=== PATIENT | male | born 1940 | race Caucasian/White ===

== ENCOUNTER → 2021-01-21 | Outpatient (CLI) | payer OTHER ==
[~2021-01-21] MED LIST: ELIQUIS5 MG PO; LEXAPRO 10 MG T10 M1 PO; NOHOMEMEDICATIONS; OXYCODONE HCL 55 MG PO; WELLBUTRIN SR150 MG PO
== END ==
LOC: M.LAB 09:00
PROVIDERS: ATTEND Surgery
DX: Z20.822 Contact with and (suspected) exposure to COVID-19 (principal)

== ENCOUNTER → 2021-01-22 | Day surgery (SDC) | payer OTHER ==
[2021-01-22 09:05] LABS: HEMATOCRIT 35.8 % (42.0-52.0); HEMOGLOBIN 12.1 gm/dL (14.0-18.0); MCHC 33.8 g/dL (28.0-37.0); MCV 88.8 fL (80.0-100.0); MPV 6.7 fl. (7.2-11.1); RBC 4.03 mil/uL (4.50-6.00); RDW-CV 14.6 % (10.5-14.5); WBC 6.9 thou/uL (4.0-11.0)
[2021-01-22 09:14] LABS: CALCIUM 8.9 mg/dL (8.5-10.1); CREATININE 1.3 mg/dL (0.6-1.3); POTASSIUM 4.3 mmol/L (3.5-5.1)
--- NOTE | 2021-01-22 11:33 | EKG ---
[place] [address] ELECTROCARDIOGRAM REPORT Name: CRYSTAL WRIGHT Room: [facility]#: [id number] Admission: 01/22/21 Attend Phys: Byron Holman Discharge: Date of : 44 Date of Service: 01/22/2100 Report #: [id number] THIS REPORT FOR: //name// [facility] Test Date: 2021-01-22 Test Time: 09:00:56 Pat Name: CRYSTAL WRIGHT Department: Room: Gender: Chief Of Surgery: DEMETRIS : 1940 Requested By: Byron Holman Order Number: [id number] Reading MD: Walt Gutierrez Measurements Intervals [place] Rate: 76 P: 4 VA: 195 QRS: -14 QRSD: 103 T: 27 QT: 371 QTc: 418 Interpretive Statements Sinus rhythm RSR' in V1 or V2, right VCD or RVH Baseline wander in lead(s) V4 No previous ECG available for comparison Electronically Signed On 01-22-2021 11:33:22 CDT by Walt Gutierrez [email or web address] <ELECTRONICALLY SIGNED> By: Walt Gutierrez MD, [facility] 01/22/21 1133 0900 0900 Walt Gutierrez MD, [facility] /EPI
--- NOTE | 2021-01-25 10:08 | PATH ---
[facility] [address] [place] [address] PATHOLOGY RPT PROCEDURE Name: ANTONIO WRIGHT GENE Room: [facility]..#: [id number] Admission: 01/22/21 Date of : 44 Discharge: Report #: [id number] Path Case #: [id number] [facility] Accession Number: [id number] . 01 Material submitted: . PART A: inguinal area - HERNIAL SAC. Modifiers: right PART B: umbilicus - CORD LIPOMA . 01 Clinical history: . HERNIA REPAIR, INGUINAL UNILATERAL RIGHT INGUINAL HERNIA . 02 Diagnosis: A. Hernial sac: - Benign mesothelial-lined fibromembranous/fibrofatty tissue with mild fibrosis. . B. Cord lipoma: - Benign fat. . (CAROL:mmbarbara; 01/24/2021) [facility] 01/24/2021 1627 Local . 02 Electronically signed: . Philip Berrios MD, Pathologist NPI- [id number] . 01 Gross description: . A. The specimen is received in formalin, labeled "Antonio Wright, hernia sac". Received is a segment of pink-salcido fibromembranous tissue measuring 5.4 x 2.2 x 1.0 cm in greatest dimensions. No distinct nodules or lesions are noted grossly. The specimen is submitted representatively in cassette A1. . B. The specimen is received in formalin, labeled "Antonio Wright, cord lipoma". Received is a segment of partially encapsulated bright yellow lobulated tissue measuring 7.5 x 2.2 x 1.2 cm in greatest dimensions. Sectioning reveals bright yellow, lobulated cut surfaces with no grossly distinct nodules or lesions. The specimen is submitted representatively in cassette B1. (CAA; 01/23/2021) QA/QA 01/24/2021 1625 Local . 02 Pathologist provided ICD-10: K40.90 . 02 CPT . [id number], [id number] [place] [address] PATHOLOGY RPT PROCEDURE Name: ANTONIO WRIGHT GENE Room: [facility]#: [id number] Admission: 01/22/21 Date of : 44 Discharge: Report #: [id number] Path Case #: [id number] Specimen Comment: A courtesy copy of this report has been sent to [phone] Specimen Comment: [phone] Specimen Comment: Report sent to / DR LITTLE Performed at: [address] [facility] [address], [place], [place] [id number] MD Seymour Meredith MD Phone: [phone] Performed at: [address] [facility] [address] [address], [place], [place] [id number] MD Philip Berrios MD Phone: [phone]
== END | disposition home or self-care (01) ==
LOC: M.SUR
PROVIDERS: ATTEND Surgery
DX: K40.90 Unilateral inguinal hernia, without obstruction or gangrene, not specified as recurrent (principal); D17.6 Benign lipomatous neoplasm of spermatic cord; Z98.890 Other specified postprocedural states; Z79.899 Other long term (current) drug therapy; Z79.01 Long term (current) use of anticoagulants; Z88.8 Allergy status to other drugs, medicaments and biological substances